=== PATIENT | female | born 1965 | race Caucasian/White ===

== ENCOUNTER → 2018-12-08 | Outpatient (CLI) | payer OTHER ==
--- NOTE | 2018-12-08 11:43 | MM ---
Reason for exam: additional evaluation requested from prior study. Last mammogram was performed 1 year and 2 months ago. History: Benign cyst aspiration of the left breast, 2016. Physical Findings: Nurse did not find any significant physical abnormalities on exam. MG 3D Diag Mammo W/Cad [facility] Bilateral CC and MLO view(s) were taken. Prior study comparison: October 20, 2017, bilateral MG 3d diag mammo w/cad [facility]. July 09, 2016, bilateral MG 3d diag mammo w/cad [facility]. There is fluctuating nodularity in the left upper outer quadrant. Ultrasound recommended. Otherwise, no significant changes. These results were verbally communicated with the patient and result sheet given to the patient on 12/08/18. ASSESSMENT: Incomplete: need additional imaging evaluation, BI-RAD 0 RECOMMENDATION: Ultrasound of the left breast. upper outer quadrant
--- NOTE | 2018-12-08 11:45 | USB ---
Reason for exam: additional evaluation requested from abnormal screening. History: Benign cyst aspiration of the left breast, 2016. US Breast Limited LT Left limited breast ultrasound including focal area of concern, retroareolar and axilla demonstrates a 6 x 5 x 5mm oval, cystic lesion at 2 o'clock, small amount of debris within. Otherwise, numerous other cysts and clusters of cysts are redemonstrated. These results were verbally communicated with the patient and result sheet given to the patient on 12/08/18. ASSESSMENT: Probably benign, BI-RAD 3 RECOMMENDATION: Follow-up diagnostic mammogram of both breasts in 1 year.
== END | disposition home or self-care (01) ==
LOC: RADMAMWWP 09:44
PROVIDERS: ATTEND Obstetrics & Gynecology
DX: R92.8 Other abnormal and inconclusive findings on diagnostic imaging of breast (principal)
CPT/HCPCS: 77062; 77066

== ENCOUNTER → 2020-05-10 | Outpatient (CLI) | payer OTHER ==
--- NOTE | 2020-05-10 10:41 | MM ---
Reason for exam: additional evaluation requested from prior study. Last mammogram was performed 1 year and 5 months ago. History: Benign cyst aspiration of the left breast, 2016. Took hormonal contraceptives for 8 years beginning at age 17. Physical Findings: Nurse did not find any significant physical abnormalities on exam. MG 3D Diag Mammo W/Cad [facility] Bilateral CC, MLO, and XCCL view(s) were taken. Prior study comparison: December 08, 2018, bilateral MG 3d diag mammo w/cad [facility]. October 20, 2017, bilateral MG 3d diag mammo w/cad [facility]. The breast tissue is heterogeneously dense. This may lower the sensitivity of mammography. Global asymmetry and underlying nodularity left upper outer quadrant. Ultrasound recommended. These results were verbally communicated with the patient and result sheet given to the patient on 05/10/20. ASSESSMENT: Incomplete: need additional imaging evaluation, BI-RAD 0 RECOMMENDATION: Ultrasound of the left breast. (upper outer quadrant)
--- NOTE | 2020-05-10 10:42 | USB ---
Reason for exam: additional evaluation requested from abnormal screening. History: Benign cyst aspiration of the left breast, 2016. Took hormonal contraceptives for 8 years beginning at age 17. US Breast Limited LT Technologist: Leisa Hunter Left limited breast ultrasound including focal area of concern, retroareolar and axilla demonstrates a 0.6 x 0.4 x 0.3cm cystic lesion at 1 o'clock and a 3.7 x 2.9 x 1.3cm large heterogeneous cluster of cysts at 2 o'clock versus 3.7 x 3.5 x 1.3cm previously. 1 year diagnostic follow up recommended. Scanned 12-3 o'clock. These results were verbally communicated with the patient and result sheet given to the patient on 05/10/20. ASSESSMENT: Probably benign, BI-RAD 3 RECOMMENDATION: Follow-up diagnostic mammogram of both breasts in 1 year.
== END | disposition home or self-care (01) ==
LOC: RADMAMWWP 07:28
PROVIDERS: ATTEND Obstetrics & Gynecology
DX: R92.8 Other abnormal and inconclusive findings on diagnostic imaging of breast (principal)
CPT/HCPCS: 77062; 77066

== ENCOUNTER → 2022-03-07 | Outpatient (CLI) | payer OTHER ==
--- NOTE | 2022-03-10 13:50 | MM ---
Reason for exam: additional evaluation requested from prior study. Last mammogram was performed 1 year and 10 months ago. History: Benign cyst aspiration of the left breast, 2016. Took hormonal contraceptives for 8 years beginning at age 17. Physical Findings: A clinical breast exam by your physician is recommended on an annual basis and results should be correlated with mammographic findings. MG 3D Diag Mammo W/Cad [facility] Bilateral CC and MLO view(s) were taken. Prior study comparison: May 10, 2020, bilateral MG 3d diag mammo w/cad [facility]. December 08, 2018, bilateral MG 3d diag mammo w/cad [facility]. The breast tissue is heterogeneously dense. This may lower the sensitivity of mammography. Asymmetric breast tissue in the left upper outer quadrant is stable. There is no discrete abnormality. Results were given to the patient verbally at the time of the exam. ASSESSMENT: Benign, BI-RAD 2 RECOMMENDATION: Routine screening mammogram of both breasts in 1 year.
== END | disposition home or self-care (01) ==
LOC: RADMAMWWP 14:16
PROVIDERS: ATTEND Obstetrics & Gynecology
DX: R92.8 Other abnormal and inconclusive findings on diagnostic imaging of breast (principal)
CPT/HCPCS: 77062; 77066

== ENCOUNTER → 2022-03-17 | Outpatient (CLI) | payer OTHER ==
--- NOTE | 2022-03-18 22:19 | BD ---
EXAMINATION TYPE: Axial Bone Density DATE OF EXAM: 03/17/2022 COMPARISON: NONE CLINICAL HISTORY: 56 years year old Female. ICD-10 CODE: N95.1 Post menopausal symptoms Height: 61IN Weight: 137.2 RISK FACTORS HISTORY OF: Family History of Osteoporosis: YES Active: YES Diet low in dairy products/other sources of calcium: YES If Premenopausal, do you have irregular periods: YES MEDICATIONS: Additional Medications: CALCIUM, ZYRTEC EXAM MEASUREMENTS: Bone mineral densitometry was performed using the [employer] System. Bone mineral density as measured about the Lumbar spine is: ----- L1-L4(G/cm2): 1.143 T Score Values are as follows: ----- L1: -0.2 ----- L2: -0.6 ----- L3: -0.6 ----- L4: 0.0 ----- L1-L4: -0.3 Bone mineral density BASELINE Bone mineral density about the R hip (g/cm2): 0.777 Bone mineral density about the L hip (g/cm2): 0.783 T Score values are as follows: -----R Neck: -1.9 -----L Neck: -1.8 -----R Total: -0.7 -----L Total: -0.6 Bone mineral density BASELINE FRAX%s: The graph provided illustrates a 8.1 chance for a major osteoporotic fx and a 0.9 chance for the hips probability for fx in 10 years time. IMPRESSION: Osteopenia (T Score between -2.5 and -1). There is slightly increased risk of fracture and the patient may be considered for treatment. Re-Screen 2-5 years. NOTE: T-SCORE=SD OF THE YOUNG ADULT MEAN.
== END | disposition home or self-care (01) ==
LOC: RADBDWWP 15:02
PROVIDERS: ATTEND Obstetrics & Gynecology
DX: M85.89 Other specified disorders of bone density and structure, multiple sites (principal)
CPT/HCPCS: 77080

== ENCOUNTER → 2023-12-30 | Outpatient (CLI) | payer OTHER ==
--- NOTE | 2023-12-31 10:15 | MM ---
Reason for Exam: Screening (asymptomatic). Last mammogram was performed 1 year(s) and 10 month(s) ago. Patient History: Menarche at age 13. First Full-Term at age 28. Hormonal Contraceptives for 8 years from age 17 until age 25. 2016, Benign Cyst Aspiration on the left side. Risk Values: Joy 5 year model risk: 1.5%. NCI Lifetime model risk: 8.5%. Prior Study Comparison: 12/08/2018 Bilateral Diagnostic Mammogram, [facility]. 05/10/2020 Bilateral Diagnostic Mammogram, [facility]. 03/07/2022 Bilateral Diagnostic Mammogram, [facility]. Tissue Density: The breast tissue is heterogeneously dense. This may lower the sensitivity of mammography. Findings: Analyzed By CAD. There is no suspicious group of microcalcifications or new suspicious mass in either breast. Benign calcification. Overall Assessment: Benign, BI-RAD 2 Management: Screening Mammogram of both breasts in 1 year. . Patient should continue monthly self-breast exams. A clinical breast exam by your physician is recommended on an annual basis. This exam should not preclude additional follow-up of suspicious palpable abnormalities. Note on Joy scores and lifetime risk: 1. A Joy score greater than 3% is considered moderate risk. If this is the case, consider specialist referral to assess eligibility for a risk reducing agent. 2. If overall lifetime risk for the development of breast cancer is 20% or higher, the patient may qualify for future screening with alternating mammogram and breast MRI. Electronically signed and approved by: Fredi Nails M.D. Radiologis
== END | disposition home or self-care (01) ==
LOC: RADMAMWWP 09:42
PROVIDERS: ATTEND Obstetrics & Gynecology
DX: Z12.31 Encounter for screening mammogram for malignant neoplasm of breast (principal)
CPT/HCPCS: 77063; 77067